=== PATIENT | male | born 1970 | race Caucasian/White ===

== ENCOUNTER 2022-05-07 08:48 | Day surgery (SDC) | payer OTHER ==
[~2022-05-07] VITALS: Ht 177.8 cm; Wt 83.0 kg
[2022-05-07] MEDS ORDERED: MIDAZOLAM 2 MG/2 ML VIAL ONE (09:47)
[2022-05-07] MEDS ORDERED: fentaNYL citrate 0.05 MG/ML VIAL ONE (09:47)
[2022-05-07] MEDS ORDERED: diphenhydrAMINE 50 MG/ML VIAL ONE (09:47)
[2022-05-07] MEDS ORDERED: LIDOCAINE 2% 100 MG/5 ML UJET TP ONE (09:47)
[2022-05-07] MEDS ORDERED: fentaNYL citrate 0.05 MG/ML VIAL IVP ONE (12:20)
[2022-05-07] MEDS ORDERED: diphenhydrAMINE 50 MG/ML VIAL IVP ONE (12:20)
[2022-05-07] MEDS ORDERED: MIDAZOLAM 2 MG/2 ML VIAL IVP ONE (12:20)
== END 2022-05-07 12:25 | disposition home or self-care (01) ==
LOC: MDS 08:48 → MMU 08:49 → MDS 12:25
PROVIDERS: ATTEND Internal Medicine Gastroenterology
DX: Z12.11 Encounter for screening for malignant neoplasm of colon (principal); D12.4 Benign neoplasm of descending colon; I10 Essential (primary) hypertension; F41.9 Anxiety disorder, unspecified; K21.9 Gastro-esophageal reflux disease without esophagitis; F17.210 Nicotine dependence, cigarettes, uncomplicated; Z88.8 Allergy status to other drugs, medicaments and biological substances; Z79.899 Other long term (current) drug therapy; Z20.822 Contact with and (suspected) exposure to COVID-19
CPT/HCPCS: 45385; 87426; J1200; J2250; J3010; 88305

== ENCOUNTER 2023-01-08 05:41 | Day surgery (SDC) | payer OTHER ==
[~2023-01-08] VITALS: Ht 177.8 cm; Wt 84.8 kg
[2023-01-08] MEDS ORDERED: BUPIVACAINE-MPF 0.25% 30 ML VIAL INJ ONE (10:14)
[2023-01-08] MEDS ORDERED: LIDOCAINE/EPI MPF 1%1:200000 30 ML VIAL INJ ONE (10:14)
[2023-01-08] MEDS ORDERED: fentaNYL citrate 0.05 MG/ML VIAL ONE (10:18)
[2023-01-08] MEDS ORDERED: SEVOFLURANE 250 ML BTL INH ONE (10:20)
[2023-01-08] MEDS ORDERED: PROPOFOL 200 MG/20 ML VIAL IV ONE ×3 (11:07→11:54)
[2023-01-08] MEDS ORDERED: KETOROLAC 30 MG/ML VIAL ONE (11:08)
[2023-01-08] MEDS ORDERED: ONDANSETRON 4 MG/2 ML VIAL ONE (11:08)
[2023-01-08] MEDS ORDERED: SUCCINYLCHOLINE CHLORIDE 200 MG/10 ML VIAL IVP ONE (11:08)
[2023-01-08] MEDS ORDERED: LABETALOL 100 MG/20 ML VIAL ONE (11:32)
[2023-01-08 12:09] VITALS: PULSE 90; O2SAT 97
[2023-01-08] MEDS ORDERED: PROPOFOL 1000 MG/100 ML PREMIX 100 ML IV STA (12:20)
== END 2023-01-08 14:00 | disposition home or self-care (01) ==
LOC: MOR 05:41 → MMU 07:06 → MOR 12:46
PROVIDERS: ATTEND Surgery
DX: K64.8 Other hemorrhoids (principal); F43.9 Reaction to severe stress, unspecified; I10 Essential (primary) hypertension; K21.9 Gastro-esophageal reflux disease without esophagitis; Z79.01 Long term (current) use of anticoagulants; Z79.899 Other long term (current) drug therapy
CPT/HCPCS: 36415; 46260; 71045; 82948; 84132; 93005; 94002; 94760; J0330; J1885; J2001; J2405; J2704; J3010; J3490; J7120; 88304

== ENCOUNTER 2023-01-20 17:14 | Emergency (ER) | payer OTHER ==
[~2023-01-20] VITALS: Ht 177.8 cm; Wt 84.8 kg
[2023-01-20 17:15] VITALS: BP 111/74; PULSE 104; RESP 20; TEMP 97.4; O2SAT 96
[2023-01-20] MEDS ORDERED: NACL 0.9% 1,000 ML IV ONE (18:15)
[2023-01-20] MEDS ORDERED: MAG SULF 2000 MG/WATER PREMIX 50 ML IV ONE (18:50)
[2023-01-20 18:53] LABS: BASOPHILS % (AUTO) 0.3 % (0.0-2.0); EOSINOPHILS % (AUTO) 0.3 % (0.0-4.0); HEMOGLOBIN 9.3 g/dL (12.0-18.0); LYMPHOCYTES # (AUTO) 1.3 K/uL (2.0-11.5); MEAN CORPUSCULAR HEMOGLOBIN 31 pg (27-31); MEAN CORPUSCULAR HGB CONC 34 g/dL (33-37); MEAN CORPUSCULAR VOLUME 90.8 fL (80-94); MONOCYTES # (AUTO) 0.7 K/uL (0.8-1.0); MONOCYTES % (AUTO) 5.7 % (1.7-9.3); NEUTROPHILS # (AUTO) 10.8 K/uL (1.8-7.7); NEUTROPHILS % (AUTO) 83.7 % (42.2-75.2); PLATELET COUNT (AUTO) 256 K/uL (140-450); RED BLOOD CELL COUNT(AUTO) 2.98 MIL/uL (4.20-6.10); RED CELL DISTRIBUTION WIDTH 13.8 % (11.6-13.7); WHITE BLOOD COUNT (AUTO) 12.9 K/uL (4.8-10.8)
[2023-01-20 19:17] LABS: ALANINE AMINOTRANSFERASE 26 U/L (12-78); ALBUMIN 2.7 g/dL (3.4-5.0); ALKALINE PHOSPHATASE 77 U/L (50-136); ANION GAP 13.3 (8-16); ASPARTATE AMINOTRANSFERASE 14 U/L (15-37); CALCIUM 8.4 mg/dL (8.5-10.1); CARBON DIOXIDE 27.2 mmol/L (21-32); CHLORIDE 101 mmol/L (98-107); CREATININE 0.9 mg/dL (0.6-1.3); GFR ARICAN-AMERICAN 113 mL/min (>90); GFR NON ARICAN-AMERICAN 93 mL/min (>90); GLUCOSE 110 mg/dL (74-106); POTASSIUM 4.5 mmol/L (3.5-5.1); SODIUM SERUM 137 mmol/L (136-145); TOTAL BILIRUBIN 0.4 mg/dL (0.0-1.0); TOTAL PROTEIN, SERUM 5.5 g/dL (6.4-8.2); UREA NITROGEN, BLOOD 12 mg/dL (7-18)
[2023-01-20] MEDS ORDERED: AMOX1TAB8 PO (20:25)
[2023-01-20] MEDS ORDERED: FERR325E14 PO (20:25)
[2023-01-20 21:00] VITALS: BP 106/55; PULSE 94; RESP 16; O2SAT 98
== END 2023-01-20 21:00 | disposition home or self-care (01) ==
LOC: MED 17:14
DX: R55 Syncope and collapse (principal); R42 Dizziness and giddiness; K62.5 Hemorrhage of anus and rectum; D64.9 Anemia, unspecified; R19.7 Diarrhea, unspecified; Z98.890 Other specified postprocedural states; Z88.1 Allergy status to other antibiotic agents; Z79.899 Other long term (current) drug therapy
CPT/HCPCS: 36415; 80053; 84484; 85025; 93005; 96361; 96365; 96366; 99284; J3475